=== PATIENT | male | born 1985 | race Caucasian/White ===

== ENCOUNTER 2017-03-03 17:37 | Emergency (ER) | payer SELFPAY ==
[2017-03-03] MEDS ORDERED: methylPREDNISolone Sod Succ/PF 125 MG/2 ML VIAL ONE (18:52)
== END 2017-03-03 19:27 | disposition home or self-care (01) ==
LOC: ERS 17:37
DX: M25.511 Pain in right shoulder (principal); F17.210 Nicotine dependence, cigarettes, uncomplicated
CPT/HCPCS: 96372; J2930

== ENCOUNTER 2017-03-16 12:18 | Emergency (ER) | payer SELFPAY ==
[2017-03-16] MEDS ORDERED: Ibuprofen 800 MG TAB ONE (15:35)
== END 2017-03-16 15:41 | disposition home or self-care (01) ==
LOC: ERS 12:18
DX: M25.511 Pain in right shoulder (principal); F17.210 Nicotine dependence, cigarettes, uncomplicated
CPT/HCPCS: 93005

== ENCOUNTER 2017-10-27 11:57 | Emergency (ER) | payer SELFPAY ==
[2017-10-27] MEDS ORDERED: Lidocaine 1% w/Epinephrine 1:100K 20 ML VIAL ONE (12:23)
== END 2017-10-27 14:12 | disposition home or self-care (01) ==
LOC: ERS 11:57
DX: L02.212 Cutaneous abscess of back [any part, except buttock and flank] (principal); F17.210 Nicotine dependence, cigarettes, uncomplicated
CPT/HCPCS: 10060; 87070; 87077; 87186; 87205; J2001

== ENCOUNTER 2017-12-06 21:08 | Emergency (ER) | payer SELFPAY ==
--- NOTE | 2017-12-06 21:35 | RAD ---
LEFT KNEE FOUR VIEWS: HISTORY: Injury. Pain. FINDINGS: There is mild edema within the inferior patellar fat pad. Small joint effusion. No acute displaced fracture or malalignment. No significant joint space narrowing. IMPRESSION: Small joint effusion with mild infrapatellar swelling without acute displaced fracture or malalignmen t. If clinically warranted, a non-emergent MRI for internal derangement is recommended. POS: [facility]
--- NOTE | 2017-12-06 21:37 | RAD ---
LEFT ANKLE THREE VIEWS: HISTORY: Pain. Swelling. COMPARISON: None. FINDINGS: There is an area of sclerosis of the distal tibial metaphysis, posteriorly. Small punctate radio-opa cities seen only on the lateral radiograph, at the level of the distal Achilles tendon. The ankle mortise is congruent. IMPRESSION: 1. Linear sclerosis of the posterior tibial metadiaphysis, which may represent an impacted fracture. 2. Punctate radio-opacities interval he posterior soft tissues of the ankle at the level of the dist al Achilles tendon, which may be within the skin or outside the patient. POS: [facility]
[2017-12-06] MEDS ORDERED: Ketorolac Tromethamine 60 MG/2 ML VIAL ONE (21:54)
== END 2017-12-06 22:35 | disposition home or self-care (01) ==
LOC: ERS 21:08
DX: M25.562 Pain in left knee (principal); F17.210 Nicotine dependence, cigarettes, uncomplicated
CPT/HCPCS: 96372; J1885

== ENCOUNTER 2019-03-24 23:40 | Emergency (ER) | payer SELFPAY ==
[2019-03-25] MEDS ORDERED: Ondansetron ODT 4 MG TAB ONE (00:16)
[2019-03-25] MEDS ORDERED: Ketorolac Tromethamine 30 MG/ML VIAL ONE (00:16)
[2019-03-25] MEDS ORDERED: Ondansetron PF 4 MG/2 ML Vial ONE (01:14)
[2019-03-25 01:45] LABS: #Monocytes 0.9 thou/uL (0.11-0.59); #Neutrophils 15.3 thou/uL (1.40-6.50); %Basophils 0.1 % (0.0-1.0); %Eosinophils 0.1 % (0.0-10.0); %Lymphocytes 5.6 % (21.0-51.0); %Monocytes 5.1 % (0.0-10.0); %Neutrophils 89.2 % (42.0-75.0); Hemoglobin 16.3 g/dL (14.0-18.0); Mean Corpuscular Volume 94.4 fL (78.0-98.0); Mean Platelet Volume 9.8 fL (7.4-10.4); Platelet Count 204 thou/uL (130-400); RBC Distribution Width 12.3 % (11.5-14.5); Red Blood Cell (RBC) Count 4.93 mill/uL (4.70-6.10); White Blood Cell (WBC) Count 17.2 thou/uL (4.8-10.8)
[2019-03-25 02:11] LABS: ALT (SGPT) 17 U/L (8-55); AST (SGOT) 14 U/L (5-34); Albumin 4.8 g/dL (3.5-5.0); Alkaline Phosphatase 45 U/L (40-110); Anion Gap 16 mmol/L (10-20); BUN (Urea Nitrogen) 6 mg/dL (8.9-20.6); Bilirubin, Total 0.6 mg/dL (0.2-1.2); Calc. Creatinine Clearance 0 mL/min (70-130); Calcium 10.3 mg/dL (7.8-10.44); Carbon Dioxide 26 mmol/L (22-29); Chloride 100 mmol/L (98-107); Estimated GFR-MDRD 63; Globulin 2.3 g/dL (2.4-3.5); Glucose 159 mg/dL (70-105); Potassium 4.1 mmol/L (3.5-5.1); Protein, Total 7.1 g/dL (6.0-8.3); Sodium 138 mmol/L (136-145)
[2019-03-25 02:57] LABS: Bacteria/HPF None Seen HPF (None Seen); Bilirubin Negative (Negative); Blood, Urine 2+ (Negative); Clarity Turbid (Clear); Glucose, Urine (Dipstick) 150 mg/dL (Negative); Leukocyte Negative Leu/uL (Negative); Mucous/LPF 4+ LPF (<2+); Nitrite Negative (Negative); Protein, Urine (Dipstick) 100 mg/dL (Neg-Trace); RBC/HPF Greater than 50 HPF (0-3); Squamous Epithelial 0-3 HPF (0-3); Yeast-Budding 2+ HPF (None Seen)
--- NOTE | 2019-03-25 08:48 | ULT ---
PRELIMINARY REPORT/[facility]/EMERGENCY AFTER HOURS PROCEDURE: PROCEDURE INFORMATION: Exam: US Scrotum and US Duplex Artery and Vein, Scrotum, Complete Exam date and time: 03/25/2019 12:13 AM Clinical history: 33 years old, male; Other: Lt testicle pain TECHNIQUE: Imaging protocol: Real-time ultrasound of the scrotum. Real-time duplex ultrasound scan of the arteri al and venous flow of the scrotum with B-mode, color Doppler flow and spectral waveform analysis. Com plete exam. Duplex images required to evaluate vascular conditions. COMPARISON: No relevant prior studies available. FINDINGS: Scrotal ultrasound was performed for evaluation of pain. Duplex ultrasound scan with color Doppler fl ow and spectral waveform analysis was also performed for evaluation of testicular blood flow and to r ule out torsion. Right Testicle: No acute findings. No mass. Normal duplex of the testicle. No evidence of torsion. Left Testicle: No acute findings. No mass. Normal duplex of the testicle. No evidence of torsion. Epididymides: No acute findings. Scrotum: Bilateral small hydroceles. IMPRESSION: No testicular mass or torsion. Bilateral small hydroceles. Thank you for allowing us to participate in the care of your patient. Dictated and Authenticated by: Cale Masters MD 03/25/2019 12:47 AM Central Time ([place] & [place]) FINAL REPORT SCROTAL ULTRASOUND: INDICATION: Left testicular pain. FINDINGS: Both testicles have a normal sonographic appearance. Color Doppler and spectral analysis demonstrate s blood flow to both testicles. Small bilateral hydroceles. I am in agreement with the preliminary report.
== END 2019-03-25 03:19 | disposition home or self-care (01) ==
LOC: ERS 23:40
DX: N50.812 Left testicular pain (principal); R11.2 Nausea with vomiting, unspecified; F17.210 Nicotine dependence, cigarettes, uncomplicated
CPT/HCPCS: 76870; 80053; 81003; 81015; 85025; 87086; 93976; 96361; 96372; 96374; J1885; J2405; Q0162

== ENCOUNTER 2021-11-17 18:58 | Emergency (ER) | payer SELFPAY | END 2021-11-17 21:03 | disposition left against medical advice (07) | LOC: ERS 18:58 | DX: Z53.21 Procedure and treatment not carried out due to patient leaving prior to being seen by health care provider (principal) ==